=== PATIENT | male | born 1930 | race Caucasian/White ===

== ENCOUNTER 2019-01-08 11:50 | Emergency (ER) | payer MEDICARE ==
[2019-01-08 12:45] VITALS: BP 115/60
--- NOTE | 2019-01-08 13:23 | UC ---
Skin Complaint HPI - HPI Summary HPI Summary: Pt is accompanied by . Pt's reports that pt has worsening wound on left anterior jimenez that she has been applying "salve" and putting bandage on over the "last few days". Pt seems mildly confused, no discussion of dementia diagnosis. - History of Current Complaint Chief Complaint: [facility] Time Seen by Provider: 01/08/19 13:12 Stated Complaint: LEFT LEG SKIN CONCERN Hx Obtained From: Family/Workers Compensation Claims Supervisor Onset/Duration: Gradual Onset, Lasting Days, Still Present, Worse Since - onset Skin Exposure Onset/Duration: Days Ago Timing: Constant Onset Severity: Mild Current Severity: Moderate Pain Intensity: 6 Location: Discrete - left anterior lower extremity Character: Redness, Painful Aggravating Factor(s): Touch Alleviating Factor(s): Nothing Associated Signs & Symptoms: Positive: Drainage - clear, Tenderness - Allergy/Home Medications Allergies/Adverse Reactions: Allergies Allergy/AdvReac Type Severity Reaction Status Date / Time No Known Allergies Allergy Verified 01/08/19 12:35 Home Medications: Home Medications Apixaban [Eliquis] 2.5 mg PO BID 01/08/19 [History Confirmed 01/08/19] Aspirin 81 mg PO DAILY 01/08/19 [History Confirmed 01/08/19] Cholecalciferol (Vitamin D3) [Vitamin D3] 2,000 units PO DAILY 01/08/19 [ History Confirmed 01/08/19] Finasteride [Proscar] 5 mg PO DAILY 01/08/19 [History Confirmed 01/08/19] Furosemide 20 mg PO DAILY 01/08/19 [History Confirmed 01/08/19] L. Acidophilus/Pectin, [place] [Acidophilus [place]] 1 tab PO DAILY 01/08/19 [ History Confirmed 01/08/19] Metoprolol Tartrate 50 mg PO BID 01/08/19 [History Confirmed 01/08/19] Simvastatin 40 mg PO DAILY 01/08/19 [History Confirmed 01/08/19] Trimethoprim TAB* 100 mg PO DAILY 01/08/19 [History Confirmed 01/08/19] dilTIAZem HCl [Diltiazem 24Hr ER (Cd)] 180 mg PO DAILY 01/08/19 [History Confirmed 01/08/19] metOLazone [Metolazone] 5 mg PO DAILY 01/08/19 [History Confirmed 01/08/19] PMH/Surg Hx/FS Hx/Imm Hx Previously Healthy: Yes Cardiovascular History: Cardiac Disease, Hypertension Neurological History: Dementia - possible - Surgical History Surgical History: Yes Surgery Procedure, Year, and Place: open heart x2. prostate - Family History Known Family History: Positive: Cardiac Disease - Social History Occupation: Retired Lives: With Family Alcohol Use: None Substance Use Type: None Smoking Status (MU): Never Smoked Tobacco Have You Smoked in the Last Year: No Review of Systems All Other Systems Reviewed And Are Negative: Yes Constitutional: Positive: Negative Skin: Positive: Other - erythema, draining wound, blisters, dired scabbed areas Eyes: Positive: Negative ENT: Positive: Negative Respiratory: Positive: Negative Cardiovascular: Positive: Negative Gastrointestinal: Positive: Negative Genitourinary: Positive: Negative Motor: Positive: Other - in wheelchair, at baseline per Neurovascular: Positive: Negative - at baseline, per Musculoskeletal: Positive: Negative - at baseline per Neurological: Positive: Negative Psychological: Positive: Negative Is Patient Immunocompromised?: No Physical Exam Triage Information Reviewed: Yes Appearance: Well-Appearing Vital Signs: Initial Vital Signs Temp 97.4 F 01/08/19 12:36 Pulse 105 01/08/19 12:36 Resp 18 01/08/19 12:36 BP 115/60 01/08/19 12:36 Pulse Ox 97 01/08/19 12:36 Vital Signs Reviewed: Yes Eye Exam: Normal ENT: Positive: Other - hard of hearing Dental: Positive: Other: - broken and missing teeth Respiratory: Positive: No respiratory distress Cardiovascular: Positive: Tachycardia Musculoskeletal Exam: Normal - at baseline Neurological Exam: Normal - at baseline Neurological: Positive: Alert Psychological Exam: Normal Skin Exam: Other - ~7 cm diameter area that is erythematous, with open wound draining clear fluid, wound was cleansed with hibicleanse and normal csaline. Mild debridement wof dried scab and dressing was applied. MIld edema to lower extremity. Pt denies significant pain Course/Dx - Course Course Of Treatment: VS noted, pt did not look toxic. Pt was alert, pink in color, conversant and denied any significant pain. Wound was superficial with mild erythema, and 1 fluid filled blister intact. - Differential Diagnoses - Skin Complaint Differential Diagnoses: Cellulitis, Impetigo, MRSA - Diagnoses Provider Diagnosis: Cellulitis Discharge ED - Sign-Out/Discharge Documenting (check all that apply): Patient Departure All imaging exams completed and their final reports reviewed: No Studies - Discharge Plan Condition: Stable Disposition: HOME Prescriptions: Cephalexin CAP* [Keflex 500 CAP*] 500 mg PO Q6H #40 cap Patient Education Materials: Cellulitis (ED) Referrals: [facility],Frank Tompkins [Primary Care Provider] - As Soon As Possible Additional Instructions: Please change your dressing twice daily or more often if necessary. Keep the wound clean and covered. Please monitor for any worsening of infection. Please follow up with your PCP as soon as possible for wound care management. You must keep your lower extremities elevated for improved wound healing. Also , it is recommended that you wear supportive socks such as diabetic socks for promotion of wound healing. - Billing Disposition and Condition Condition: STABLE Disposition: Home
== END 2019-01-08 13:41 | disposition home or self-care (01) ==
LOC: UCCORT 11:50
DX: L03.116 Cellulitis of left lower limb (principal); I10 Essential (primary) hypertension; Z82.49 Family history of ischemic heart disease and other diseases of the circulatory system; Z79.82 Long term (current) use of aspirin; Z79.01 Long term (current) use of anticoagulants; Z99.3 Dependence on wheelchair
CPT/HCPCS: 99203; G0463